=== PATIENT | female | born 1945 | race Caucasian/White ===

== ENCOUNTER 2019-10-04 13:04 | Outpatient (CLI) | payer MEDICARE ==
[~2019-10-04 13:04] MED LIST: ACET325T26 PO; ASCO10004 PO; CALC-46 PO; CEFT2FRO2 IV; CHOL500045 PO; CYAN100014 PO; DEXA4VIA39 IVPush; DOCU100C33 PO; FLAX1CAP PO; LEVE500T53 PO; MV,C400T2 PO; NAPR220C2 PO; OMEG-76 PO; ONDA4TAB13 PO; TURM1POW PO
[2019-10-04] MEDS ORDERED: OMNIPAQUE 350 MG/ML, 100ML BOTTLE ONE (16:50)
== END 2019-10-04 23:59 | disposition home or self-care (01) ==
LOC: CFH 13:04
PROVIDERS: ATTEND Radiology Vascular & Interventional Radiology
DX: Q25.72 Congenital pulmonary arteriovenous malformation (principal); M85.88 Other specified disorders of bone density and structure, other site; M47.819 Spondylosis without myelopathy or radiculopathy, site unspecified
CPT/HCPCS: 71275; Q9967

== ENCOUNTER → 2019-10-10 | Outpatient (CLI) | payer MEDICARE | END | disposition home or self-care (01) | LOC: CVU 11:31 | PROVIDERS: ATTEND Radiology Vascular & Interventional Radiology | DX: I34.0 Nonrheumatic mitral (valve) insufficiency (principal); Q25.72 Congenital pulmonary arteriovenous malformation | CPT/HCPCS: 93306; 93356 ==